=== PATIENT | female | born 1965 ===

== ENCOUNTER 2021-02-19 08:51 | Outpatient (REF) | payer MEDICAID, SELFPAY ==
--- NOTE | ~2021-02-19 | MM_ITS ---
EXAMINATION: MM DIAGNOSTIC DIGITAL BREAST TOMOSYNTHESIS, BILATERAL CLINICAL INFORMATION: Due for yearly. Also follow-up probable benign nodule/cyst 9:00 left breast. The lifetime risk of breast cancer based on the Tyrer-Cuzick Model is 6%. COMPARISON: Mammography: 09/02/2019, 02/22/2019, 02/11/2019 (BI-RADS 0) 11/04/2016, 05/08/2015 TECHNIQUE: Digital breast tomosynthesis is performed in both the craniocaudal and mediolateral oblique views along with computer-aided detection (CAD). Synthesized 2D images are generated from the tomosynthesis. FINDINGS: There are scattered areas of fibroglandular density (ACR BI-RADS breast composition Category b). Parenchymal pattern is similar to prior exams. There is stable nodule upper outer quadrant left breast similar to prior studies. The nodule central inner left breast is stable from prior diagnostic exams. It is now considered to be benign. Other background bilateral stromal and fibroglandular densities are similar to prior studies. There is no interval mass or architectural abnormality or developing density. No abnormal calcifications. The axilla and skin contours are unremarkable. Results are provided to the patient at time of visit by the technologist. MM/MM tomosynthesis diagnostic BI IMPRESSION: There are no significant changes from prior study. The nodule for follow up inner left breast is now considered to be benign. ASSESSMENT: BI-RADS 2: Benign RECOMMENDATION: Routine annual mammography screening. This patient's information was entered into a reminder system with a target due date for their next mammogram.
== END 2021-02-19 08:52 | disposition home or self-care (01) ==
LOC: HO.MAMMO 08:51
PROVIDERS: Visit Provider Internal Medicine
DX: N63.25 Unspecified lump in the left breast, overlapping quadrants (principal)
CPT/HCPCS: 77062; 77066

== ENCOUNTER 2021-02-28 15:55 | Outpatient (REF) | payer MEDICAID, SELFPAY ==
--- NOTE | ~2021-02-28 | US_ITS ---
EXAMINATION: US VENOUS ULTRASOUND WITH DOPPLER LOWER EXTREMITY, BILATERAL CLINICAL INFORMATION: Bilateral lower extremity pain and swelling. COMPARISON: None TECHNIQUE: Ultrasound of the deep veins is performed from the hip to the calf with compression sonography and color and pulse Doppler assessment. Spectral analysis with color-flow imaging is performed. FINDINGS: RIGHT: There is normal venous compression and respiratory variation and augmented flow. The visualized common femoral vein, superficial femoral vein, profunda femoral vein, popliteal vein, and the trifurcation region shows no evidence of deep venous thrombosis. There is no significant popliteal fossa cyst. LEFT: There is normal venous compression and respiratory variation and augmented flow. The visualized common femoral vein, superficial femoral vein, profunda femoral vein, popliteal vein, and the trifurcation region shows no evidence of deep venous thrombosis. There is no significant popliteal fossa cyst. If the patient's symptoms persist, followup ultrasound in 5 days 7 days might be of value to exclude proximal propagation from a non-visualized calf vein. US/US venous duplex LE BI IMPRESSION: No DVT demonstrated in the bilateral lower extremities.
== END 2021-02-28 15:56 | disposition home or self-care (01) ==
LOC: HO.US 15:55
PROVIDERS: Visit Provider Emergency Medicine
DX: R60.0 Localized edema (principal); M79.605 Pain in left leg; M79.604 Pain in right leg
CPT/HCPCS: 93970

== ENCOUNTER 2021-03-29 16:07 | Emergency (ER) | payer MEDICAID, SELFPAY ==
--- NOTE | ~2021-03-29 | XR_ITS ---
EXAMINATION: XR FOOT, LEFT CLINICAL INFORMATION: Wound left foot. COMPARISON: None TECHNIQUE: 2 views of the left foot. FINDINGS: No focal bone lesion or abnormal periosteal reaction. No radiographic evidence for osteomyelitis. Joint spaces are normal. Small plantar calcaneal spur. No soft tissue abnormality. XR/XR foot LT 2V IMPRESSION: No acute abnormality of the left foot.
[2021-03-29 16:37] VITALS: BP 201/114; PULSE 66; RESP 18; TEMP 37.1; O2SAT 100; BMI 37.8
--- NOTE | 2021-03-29 17:32 | ED_ITS ---
HPI - Extremity Injury (Lower) General Chief Complaint: Extremity Injury, Lower Stated Complaint: leg infection Time Seen by Provider: 03/29/21 17:32 Source: patient and air drier Mode of arrival: ambulatory Limitations: no limitations History of Present Illness HPI Narrative: 55-year-old female who developed a blister between 4th and 5th toes left foot, patient declined any trauma declined any new shoes, because patient is diabetic was seen by her PCP and was started on doxycycline. In the emergency department patient found to be hypertensive patient takes blood pressure medication normally but she did not take her wrist today (patient cannot recall the name of the medication) but patient thing that blood pressure is high because of the pain in the left foot. Patient declined any headache, no chest pain, no abdominal pain, no blurry vision. Related Data Previous Rx's Medication Instructions Recorded ibuprofen 600 mg tablet 600 mg PO Q8H PRN #14 tab 03/29/21 Allergies Allergy/AdvReac Type Severity Reaction Status Date / Time No Known Allergies Allergy Verified 03/29/21 16:37 Review of Systems Review of Systems: All other systems are reviewed and are negative Constitutional: Reports as per HPI and Reports no additional constitutional complaints Eyes: Reports as per HPI and Reports no additional eye complaints Reports system reviewed and no additional complaints, except as documented Cardiovascular: Reports as per HPI and Reports no additional cardiovascular complaints Respiratory: Reports as per HPI and Reports no additional respiratory complaints Gastrointestinal: Reports as per HPI and Reports no additional gastrointestinal complaints Genitourinary: Reports no additional female genitourinary complaints Musculoskeletal: Reports no additional musculoskeletal complaints Skin/Breast: Reports system reviewed and no additional complaints, except as docu Psychiatric: Reports no additional psychiatric complaints Endocrine: Reports no additional endocrine complaints Hematologic/Lymphatic: Reports no additional hematologic/lymphatic complaints Allergic/Immunologic: Reports no additional allergic/immunologic complaints Reports system reviewed and no additional complaints, except as documented and Reports Abnormal speech present [facility] Past Medical History Medical History Diabetes Social History Social History Advance Directives: No Physical Exam Vital Signs: Vital Signs: Last Vital Signs Temp 98 F 03/29/21 18:55 Pulse 66 03/29/21 18:55 Resp 20 03/29/21 18:55 BP 181/95 H 03/29/21 18:55 Pulse Ox 100 09/16/21 18:55 Body Mass Index 37.8 Vital signs have been reviewed as appeared to be correct. Blood pressure elevated. Heart rate normal. Respiration rate normal. Temperature normal. Oxygen saturation normal. Appearance: Alert. Oriented X3. No acute distress. Head: Normal external exam. Normocephalic. Atraumatic. No Costello signs noted. No raccoon eyes noted Eyes: PERRLA. EOMI. Conjunctiva and sclera normal. Eyelids normal. ENT: TM's Normal. Pharynx normal. Uvula midline. Moist mucous membranes. No trismus noted. No drooling noted. No muffled voice noted. Neck: Normal inspection. Neck supple. FROM. No adenopathy. Thyroid Normal. No meningeal signs. No neck mass noted. CVS: Normal heart rate and rhythm. Heart sound normal. No murmurs noted. Pulses normal throughout. Respiratory: No respiratory distress. Painless inspiration. Breath sounds normal. No wheezes/rales/rhonchi noted. Chest nontender. No accessory muscle usage noted or decreased air movement noted. Abdomen: Soft and nontender. Bowel sounds normal in all 4 quadrants. No distention noted. No organomegaly noted. No visible injury noted. Back: No CVA tenderness. Full range of motion noted. Skin: Skin warm and dry. Normal skin color. Normal skin turgor. No rashes/lesions/lacerations noted. Extremities: No lower extremity edema. Extremities exhibit normal range of motion. Extremities nontender. Neuro: Oriented X 3. Cranial nerve exam: II-XII are grossly intact No motor deficit. No sensory deficit. Reflexes normal. Course Course Course Narrative: 55-year-old female came in with blister on her left foot because patient is diabetic patient was started on doxycycline, patient found to be hypertensive patient with a history of hypertension and did not take her medication today, patient was given pain medication the emergency department blood pressure now is lower patient was instructed to take her blood pressure medication when she gets home. MDM - Extremity Injury (Lower) Imaging Data Left foot x-ray: Radiologist's impression: No acute abnormality of the left foot. Discharge Plan Discharge Clinical Impression: Hypertension, Blister (nonthermal), left foot, initial encounter Patient Disposition: Home, Self-Care Instructions: Hypertension (ED) Prescriptions: New ibuprofen 600 mg tablet 600 mg PO Q8H PRN (Reason: pain) Qty: 14 RF: 0 Referrals: [place] [Primary Care Provider] - 2 days
[2021-03-29] MEDS: oxyCODONE HCl Immed Release 5 MG TABLET PO (18:17)
[2021-03-29 18:55] VITALS: BP 181/95; PULSE 66; RESP 20; TEMP 36.6; O2SAT 100
== END 2021-03-29 19:37 | disposition home or self-care (01) ==
PROVIDERS: Emergency Provider Emergency Medicine
DX: M79.672 Pain in left foot (principal); I10 Essential (primary) hypertension; Z79.899 Other long term (current) drug therapy
CPT/HCPCS: 73620; 99283; 99284

== ENCOUNTER 2021-07-03 14:14 | Outpatient (REF) | payer MEDICAID, SELFPAY ==
--- NOTE | ~2021-07-03 | XR_ITS ---
EXAMINATION: XR CERVICAL SPINE XR THORACIC SPINE CLINICAL INFORMATION: Cervicalgia COMPARISON: None. TECHNIQUE: 5 views of the cervical spine and 3 views of the thoracic spine FINDINGS: No acute visible fracture or dislocation. Straightening of normal cervical curvature which may be secondary to patient positioning versus muscle spasm. Mild to moderate multilevel degenerative changes with disc space narrowing, endplate sclerosis, osteophyte formation, and facet arthropathy. Slight exaggeration of the thoracic kyphosis. Neuroforamen are patent bilaterally. Visualized dens is intact. Lateral masses are symmetric. Vertebral body heights and disc spaces are maintained. Prevertebral soft tissues are unremarkable. Posterior elements are intact. Paraspinal soft tissues are unremarkable. Visualized portions of the chest are unremarkable. XR/XR thoracic spine 2V IMPRESSION: 1. No acute visible fracture or dislocation. 2. Straightening of normal cervical curvature which may be secondary to patient positioning versus muscle spasm. 3. Slight exaggeration of the thoracic kyphosis. 4. Mild to moderate multilevel degenerative changes .
--- NOTE | ~2021-07-03 | XR_ITS ---
EXAMINATION: XR CERVICAL SPINE XR THORACIC SPINE CLINICAL INFORMATION: Cervicalgia COMPARISON: None. TECHNIQUE: 5 views of the cervical spine and 3 views of the thoracic spine FINDINGS: No acute visible fracture or dislocation. Straightening of normal cervical curvature which may be secondary to patient positioning versus muscle spasm. Mild to moderate multilevel degenerative changes with disc space narrowing, endplate sclerosis, osteophyte formation, and facet arthropathy. Slight exaggeration of the thoracic kyphosis. Neuroforamen are patent bilaterally. Visualized dens is intact. Lateral masses are symmetric. Vertebral body heights and disc spaces are maintained. Prevertebral soft tissues are unremarkable. Posterior elements are intact. Paraspinal soft tissues are unremarkable. Visualized portions of the chest are unremarkable. XR/XR cervical spine 4V IMPRESSION: 1. No acute visible fracture or dislocation. 2. Straightening of normal cervical curvature which may be secondary to patient positioning versus muscle spasm. 3. Slight exaggeration of the thoracic kyphosis. 4. Mild to moderate multilevel degenerative changes .
== END 2021-07-03 14:15 | disposition home or self-care (01) ==
LOC: HO.XRAY 14:14
PROVIDERS: Absent Provider Internal Medicine; PCP Internal Medicine; Visit Provider General Practice
DX: M54.2 Cervicalgia (principal)
CPT/HCPCS: 72050; 72070

== ENCOUNTER 2022-03-31 08:57 | Emergency (ER) | payer MEDICAID, SELFPAY ==
[2022-03-31 09:57] VITALS: BP 155/72; PULSE 64; RESP 18; TEMP 37.3; O2SAT 98; BMI 27.3
--- NOTE | 2022-03-31 14:02 | ED.GENADULT ---
HPI - General Adult General Chief complaint: Skin/Abscess/Foreign Body Stated complaint: allergic reaction Source: patient Mode of arrival: ambulatory Limitations: no limitations History of Present Illness HPI narrative: 56-year-old female presents to ED for facial itching and redness see since Friday. Patient states itchy rash on face with hives. Patient states this morning she woke up with eyes swollen with the same facial rash. Patient denies ever having lip swelling, tongue swelling, sensation of throat closing, shortness of breath. Patient states also had itchy rash on extremities that resolved. Patient denies any chest pain or shortness of breath. Patient states no fever, chills, runny eyes. Patient eyes swelling resolved. Related Data Previous Rx's Medication Instructions Recorded ibuprofen 600 mg tablet 600 mg PO Q8H PRN pain #14 tabs 03/29/21 diphenhydramine HCl 25 mg capsule 25 mg PO TID PRN allergic reaction 03/31/22 (Benadryl) 7 days #21 caps famotidine 20 mg tablet (Pepcid) 20 mg PO BID 7 days #14 tabs 03/31/22 prednisone 20 mg tablet 40 mg PO DAILY 5 days #10 tabs 03/31/22 Allergies Allergy/AdvReac Type Severity Reaction Status Date / Time No Known Allergies Allergy Verified 03/31/22 09:57 Review of Systems Review of Systems: facial itchy rash Yes all other systems are reviewed and are negative PMFSH Past Medical History Medical History Diabetes Social History Social History Advance Directives: No Advance Directives Information Provided: No Physical Exam ED Vital Signs: Vital Signs - 24 hr 03/31/22 09:57 Temperature 99.2 F Pulse Rate 64 Respiratory Rate 18 Blood Pressure 155/72 H Pulse Oximetry 98 Oxygen Delivery Method Room Air BMI result Body Mass Index 27.3 Const General: cooperative, healthy appearing, comfortable, no acute distress, well developed, alert, awake and Physically active Orientation/consciousness: oriented to person, oriented to place, oriented to time and patient oriented x3 HENMT Head: Yes normal to inspection, Yes No palpable skull fracture present, Yes normocephalic, Yes atraumatic and No abrasion Head images: 1. Positive for erythematous itchy rash Uticaria. Negative for vesicles. negative for lip swelling, tongue swelling, drooling, hoarseness, or uvular swelling. 2. Positive for erythematous itchy rash Uticaria. Negative for vesicles. negative for lip swelling, tongue swelling, drooling, hoarseness, or uvular swelling. Eyes General: appearance normal, both eyes and all related structures Neck Neck: Yes normal visual inspection, Yes full ROM and Yes no meningeal signs Chest Chest palpation & inspection: normal inspection of the chest and normal palpation of entire chest wall Resp Effort & Inspection: normal respiratory effort and able to speak in complete sentences Auscultation: clear to auscultation bilaterally Cardio Jugular venous distension: no JVD Heart sounds: S1 normal heart sound present and S2 normal heart sound present GI Inspection: Yes normal to inspection and No abdominal wall ecchymosis Palpation (GI): Soft to palpation, not firm, nontender, no guarding and not rigid General: No CVA tenderness and Yes no CVA tenderness Back/Spine/Pelvis Back: no CVA tenderness, No CVA tenderness and No back tenderness Skin General skin exam: no rashes or lesions noted and elasticity normal Neuro General: oriented to person, oriented to place, oriented to time, patient oriented x3, gait normal, tone normal, moves all extremities, Normal light touch and pain sensation, no meningeal signs, no focal motor deficits and CN's II-XI intact bilaterally Extrem General: Yes normal to inspection and Yes full ROM Psych Appearance: grossly normal, well kempt and not disheveled Course Course Course Narrative: patient is stable. Reevaluation(s) Reevaluation #1: Patient is not in any respiratory distress. History physical exam indicate allergic reaction. Not suspecting facial cellulitis or erysipelas. Patient will be discharged with prednisone Benadryl and Pepcid. Patient informed to return to ED if symptoms worsen.s Time: 14:12 Medical Decision Making [facility] Narrative Medical decision making narrative: Allergic reaction Discharge Plan Discharge Clinical Impression: Allergic reaction Patient Disposition: Home, Self-Care Instructions: General Allergic Reaction (ED) Additional Instructions: La historia y el examen f?sico indican chemo reacci?n al?rgica. Ser? dado de dasia con Benadryl, esteroides y Pepcid. Regrese al servicio de urgencias inmediatamente si tiene fiebre, escalofr?os, hinchaz?n de los labios, hinchaz?n de la lengua, dificultad para respirar, dolor en el pecho, sarpullido que empeora, fiebre, escalofr?os, ojos llorosos o cualquier otro s?ntoma preocupante. Por favor, rody un seguimiento con el proveedor de atenci?n primaria. Prescriptions: New diphenhydramine HCl [Benadryl] 25 mg capsule 25 mg PO TID PRN (Reason: allergic reaction) 7 Days Qty: 21 0RF prednisone 20 mg tablet 40 mg PO DAILY 5 Days Qty: 10 0RF famotidine [Pepcid] 20 mg tablet 20 mg PO BID 7 Days Qty: 14 0RF No Action ibuprofen 600 mg tablet 600 mg PO Q8H PRN (Reason: pain) Qty: 14 0RF Referrals: Tiffanie Cavazos MD [Primary Care Provider] - (Allergic reaction) Stand Alone Forms: Work/School Release Interventions: ED Discharge Assessment Last Done: 03/31/22 14:33 Discharge Date/Time: 03/31/22 14:33 Print Language: Macedonian
== END 2022-03-31 14:33 | disposition home or self-care (01) ==
PROVIDERS: Emergency Provider Emergency Medicine; PCP Internal Medicine
DX: L23.9 Allergic contact dermatitis, unspecified cause (principal); Z79.899 Other long term (current) drug therapy
CPT/HCPCS: 99282

== ENCOUNTER 2023-02-12 09:24 | Outpatient (REF) | payer MEDICAID, SELFPAY ==
--- NOTE | ~2023-02-12 | XR_ITS ---
EXAMINATION: XR ANKLE, RIGHT CLINICAL INFORMATION: Pain status-post injury. COMPARISON: None available. TECHNIQUE: AP, lateral, and mortise views of the right ankle. FINDINGS: Bony alignment and mineralization are normal. The ankle mortise is intact. No fracture, dislocation or right joint effusion is seen. Boehler's angle is normal. There is a moderate plantar calcaneal spur. There is moderate soft tissue swelling adjacent to the lateral malleolus. XR/XR ankle RT min 3V IMPRESSION: 1. No right ankle fracture, dislocation or joint effusion is seen. 2. There is moderate soft tissue swelling adjacent to the lateral malleolus. 3. There is a moderate right calcaneal plantar spur.
== END 2023-02-12 09:25 | disposition home or self-care (01) ==
LOC: HO.HHCX 09:24
PROVIDERS: Visit Provider Registered Nurse
DX: M25.571 Pain in right ankle and joints of right foot (principal)
CPT/HCPCS: 73610

== ENCOUNTER 2023-02-12 09:45 | Outpatient (REF) | payer MEDICAID, SELFPAY ==
[2023-02-12 12:27] LABS: Cholesterol 166 mg/dL; HDL Cholesterol 50 mg/dL; LDL Cholesterol Calculated 101 mg/dl; Triglycerides 79 mg/dL
== END 2023-02-12 09:46 | disposition home or self-care (01) ==
LOC: HO.HHCL 09:45
PROVIDERS: Visit Provider Registered Nurse
DX: E11.65 Type 2 diabetes mellitus with hyperglycemia (principal); Z79.4 Long term (current) use of insulin
CPT/HCPCS: 36415; 80061

== ENCOUNTER 2023-03-21 14:15 | Outpatient (REF) | payer MEDICAID, SELFPAY ==
[2023-03-21 15:09] LABS: MANUAL DIFF FLAG NO
[2023-03-21 16:05] LABS: Basophils Percent Auto 0.4 % (0-2); Eosinophils Absolute Auto 0.1 X10*3/uL (0.0-0.4); Eosinophils Percent Auto 1.2 % (0-4); Hematocrit 37.2 % (37.0-47.0); Hemoglobin 12.5 g/dl (12.0-16.0); Imm Gran Abs Auto 0.02 X10*3/uL (0.00-0.03); Imm Gran Pct Auto 0.2 % (0.0-0.4); Lymphocytes Absolute Auto 3.1 X10*3/uL (1.2-4.9); Mean Corpuscular HGB Conc 33.6 g/dl (31.0-35.0); Mean Corpuscular Hemoglobin 30.2 pg (27.0-33.0); Mean Corpuscular Volume 89.9 fL (80.0-98.0); Mean Platelet Volume 11.4 fL (9.4-12.3); Monocytes Absolute Auto 0.6 X10*3/uL (0.1-1.2); Monocytes Percent Auto 5.6 % (2-11); Neutrophils Absolute Auto 6.1 x10*3/uL (2.0-8.3); Neutrophils Percent Auto 61.6 % (45-73); Platelet Count 264 X10*3/uL (160-400); Red Blood Count 4.14 X10*6/uL (4.20-5.50); Red Cell Distribution Width 13.3 % (11.0-16.0); White Blood Count 9.9 X10*3/uL (4.8-10.8)
== END 2023-03-21 14:16 | disposition home or self-care (01) ==
LOC: HO.LAB 14:15
PROVIDERS: PCP Internal Medicine; Visit Provider Internal Medicine Pulmonary Disease
DX: J45.909 Unspecified asthma, uncomplicated (principal); R06.09 Other forms of dyspnea; G47.33 Obstructive sleep apnea (adult) (pediatric); Z79.899 Other long term (current) drug therapy; Z91.09 Other allergy status, other than to drugs and biological substances
CPT/HCPCS: 36415; 82785; 85025; 86003; 99202

== ENCOUNTER 2023-03-21 14:15 | Outpatient (AMB) | payer MEDICAID, SELFPAY ==
--- NOTE | 2023-03-21 14:16 | A.OFFVIS_ITS ---
Intake Vital Signs 03/21/23 14:17 Height 5 ft 1 in Weight 199 lb 8.293 oz BMI 37.7 BP 132/77 Blood Pressure Location Lt brachial Position Sitting Pulse 76 Pulse Source Doppler Pulse Oximetry (%) 98 Oxygen Delivery Method Room Air Intake Visit Reasons: Asthma Allergies No Known Allergies Allergy (Verified 03/21/23 14:19) HPI Asthma HPI Details 57-year-old lady, nonsmoker, with underl cady history of asthma referred for management of her pulmonary concern complaints. Patient states that she has been using Breo, albuterol MDI, and Singulair with suboptimal control of her symptoms. She complains of multiple environmental allergies. Patient is also concerned about lower extremity edema, orthopnea, and paroxysmal nocturnal dyspnea. She denies family history of lung disease. Patient does not have any pets. She denies exposure to industrial dusts. Patient also complains of unrestful sleep, snoring, and daytime somnolence. [facility] Medical History Diabetes Review of Systems Const Reports daytime sleepiness, Denies excessive sweating, Reports fatigue, Denies fever(s), Reports lethargy, Denies malaise, Denies night sweats, Reports snoring and Denies weight loss Eyes Denies blurry vision and Denies itchy eyes ENT Denies nasal congestion, Denies post nasal drip, Denies sinus pain, Denies sinus pressure and Denies other ( Thrush) Card Denies chest pain, Reports pedal edema, Denies dyspnea, Reports dyspnea on exertion, Reports orthopnea and Denies paroxysmal nocturnal dyspnea Resp Denies cough, Denies hemoptysis, Denies excessive phlegm production, Denies dyspnea, Reports dyspnea on exertion, Reports snoring and Reports wheezing GI Denies abdominal pain and Denies heartburn Musc Denies myalgias, Denies arthralgias and Denies joint swelling Skin/Breast Denies rash Neuro Denies memory loss and Denies seizure-like activity Psych Denies abnormal sleep pattern, Denies anxiety and Denies memory loss Endo Denies excessive sweating, Reports fatigue and Denies heat intolerance John/Lymph Denies easy bruising Aller/Immun Denies itchy eyes, Denies seasonal rhinorrhea and Reports wheezing Physical Exam Vital Signs: Last Vital Signs Pulse 76 03/21/23 14:17 BP 132/77 03/21/23 14:17 Pulse Ox 98 03/21/23 14:17 Oxygen Delivery Method Room Air 03/21/23 14:17 BMI result Body Mass Index 37.7 Const General: no acute distress and alert Nutritional Appearance: obese Orientation/consciousness: Other orientation findings ( oriented) HEENT Head: Yes atraumatic Eyes General: appearance normal, both eyes and all related structures Sclerae: sclerae normal EOM: EOMs intact bilaterally Neck Neck: Yes supple Lymphatic: no lymphadenopathy noted Resp Effort & Inspection: normal respiratory effort and no use of accessory muscles Auscultation: clear to auscultation bilaterally Cardio Rate: regular rate Rhythm: regular rhythm Heart sounds: no gallops, no murmurs and no rubs Skin General skin exam: other ( warm) Extrem General: No clubbing, No cyanosis and Yes edema (1+ bilateral) Assessment & Plan Assessment & Plan (1) Asthma: Code(s): J45.909 - Unspecified asthma, uncomplicated Plan: Underlying asthma of unclear severity suboptimally controlled on Breo, albuterol MDI, and Singulair. Will obtain full PFT. Continue current regimen until PFT results are available. (2) MIRANDA (dyspnea on exertion): Code(s): R06.09 - Other forms of dyspnea Plan: Appears to be multifactorial with likely contribution from underlying pulmonary, cardiac, and obesity/deconditioning etiologies. Will obtain 2D echocardiogram to evaluate cardiac contribution. (3) JOEL (obstructive sleep apnea): Code(s): G47.33 - Obstructive sleep apnea (adult) (pediatric) Plan: Unrestful sleep, daytime somnolence, snoring. [place] Sleepiness Scale score of 16. Will obtain home sleep study. (4) Environmental allergies: Code(s): Z91.09 - Other allergy status, other than to drugs and biological substances Plan: Will obtain IgE level, CBC with differential, and RAST panel for further evaluation. Orders: Orders PFT pulmonary function test Today J45.909 - Unspecified asthma, uncomplicated Complete Blood Count Auto Diff Today Z91.09 - Other allergy status, other than to drugs and biological substances RT home sleep study Today G47.33 - Obstructive sleep apnea (adult) (pediatric) Rast Allergen Today Z91.09 - Other allergy status, other than to drugs and biological substances CA echo transthoracic complete Today R06.09 - Other forms of dyspnea Coding Level of Care Code New Pt Level 4 (62180) Diagnoses Asthma J45.909 MIRANDA (dyspnea on exertion) R06.09 JOEL (obstructive sleep apnea) G47.33 Environmental allergies Z91.09
[2023-03-21 14:17] VITALS: BP 132/77; PULSE 76; O2SAT 98; BMI 37.7
== END 2023-03-21 14:58 | disposition home or self-care (01) ==
PROVIDERS: PCP Internal Medicine; Visit Provider Internal Medicine Pulmonary Disease
DX: J45.909 Unspecified asthma, uncomplicated (principal); R06.09 Other forms of dyspnea; G47.33 Obstructive sleep apnea (adult) (pediatric); Z91.09 Other allergy status, other than to drugs and biological substances
CPT/HCPCS: 99204

== ENCOUNTER 2023-07-09 09:33 | Outpatient (AMB) | payer MEDICAID, SELFPAY ==
[2023-07-09 10:33] VITALS: BMI 37.4
--- NOTE | 2023-07-09 10:33 | A.OFFVIS_ITS ---
Intake Vital Signs 07/09/23 10:33 Height 5 ft 1 in Weight 198 lb BMI 37.4 Intake Visit Reasons: nodule clavicle cyst vs. lipoma Intake Note: This patient presents for an assessment for clavicular nodule vs cyst vs lipoma. Pt c/o; reports no complaints at this time. 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 Name: Naun Information Interpreted: non-clinical & clinical Accompanied by: Other Relationship Allergies No Known Allergies Allergy (Verified 07/09/23 10:34) Medication List - Last Reconciled 07/09/23 by Wallace Salmeron MD albuterol sulfate 90 mcg/actuation (ProAir HFA) 2 puffs inhalation Q4-6H PRN amlodipine 10 mg PO QAM atenolol 25 mg PO QAM chlorthalidone 12.5 mg PO QAM diphenhydramine HCl (Benadryl) 25 mg PO TID PRN 7 days dulaglutide (Trulicity) mg subcut QWEEK duloxetine 30 mg PO QAM empagliflozin (Jardiance) 25 mg PO QAM famotidine (Pepcid) 20 mg PO BID 7 days gabapentin 100 mg PO BEDTIME ibuprofen 600 mg PO Q8H PRN metformin ER 500 mg PO QAM montelukast 10 mg PO QPM omeprazole 20 mg PO prednisone 40 mg (2 x 20 mg) PO DAILY 5 days rosuvastatin 10 mg PO QAM HPI nodule clavicle cyst vs. lipoma HPI Details 57-year-old female referred for a on the right clavicular area. She says that she has had this for over 30 years. However, this had been causing some pain and discomfort. She therefore wants this removed. She denies any discharge or any redness. She has noticed some increased in size over the years. PENDING SALE TO [facility] Medical History (Updated 07/09/23 @ 10:48 by Wallace Salmeron MD) Mass in neck Morbid obesity Diabetes Social History Alcohol intake: never Patient Tobacco Use Status: Never used Tobacco Review of Systems Const Denies chills and Denies fever(s) Card Denies chest pain, Reports dyspnea and Reports dyspnea on exertion Resp Denies cough, Reports dyspnea and Reports dyspnea on exertion GI Denies hematochezia and Denies change in bowel habits Denies hematuria Musc Reports abnormal gait, Reports back pain, Reports arthralgias and Reports limited range of motion Neuro Reports abnormal gait, Denies focal weakness and Denies convulsions Psych Denies depression and Denies mood swings Physical Exam Vital Signs: BMI result Body Mass Index 37.4 Const Other: Morbidly obese, using a cane to ambulate General: comfortable and no acute distress Orientation/consciousness: patient oriented x3 Neck Other: On the right collarbone area is note of a soft, well-defined, mobile mass, about 2 cm, consistent with a fibroma Neck: Yes no lymphadenopathy Resp Auscultation: clear to auscultation bilaterally Cardio Rhythm: regular rhythm GI Palpation (GI): Soft to palpation, nontender and no guarding Neuro General: patient oriented x3 Assessment & Plan Assessment & Plan (1) Mass in neck: Code(s): R22.1 - Localized swelling, mass and lump, neck Plan: This appears to be a fibroma. She wants this excised. I explained the technique of excision under local anesthesia. I reviewed the risks including but not limited to bleeding, infections and poor healing, as well as the benefits and alternatives. She wants to proceed. This will be done here in the office on her next visit. Coding Level of Care Code New Pt Level 3 (81320) Diagnoses Mass in neck R22.1
== END 2023-07-09 10:51 | disposition home or self-care (01) ==
PROVIDERS: PCP Registered Nurse; Visit Provider Surgery
DX: R22.1 Localized swelling, mass and lump, neck (principal)
CPT/HCPCS: 99203

== ENCOUNTER → 2023-07-09 09:33 | Outpatient (BNVA) | payer MEDICAID, SELFPAY | PROVIDERS: PCP Registered Nurse; Visit Provider Surgery | DX: R22.1 Localized swelling, mass and lump, neck (principal) | CPT/HCPCS: 99202 ==

== ENCOUNTER 2023-11-01 20:44 | Emergency (ER) | payer MEDICAID, SELFPAY ==
--- NOTE | 2023-11-01 | ECG_ITS ---
Test Reason : GEN MED Blood Pressure : / mmHG Vent. Rate : 064 BPM Atrial Rate : 064 BPM P-R Int : 184 ms QRS Dur : 078 ms QT Int : 390 ms P-R-T Axes : 058 015 042 degrees QTc Int : 402 ms Normal sinus rhythm Normal ECG When compared with ECG of 27-JUN-2017 09:02, No significant change was found Referred By: Generic ED Physician Electronically Signed By:HAYLEE CHAND
[2023-11-01 20:46] VITALS: BP 190/77; PULSE 66; RESP 20; TEMP 36.4; O2SAT 100; BMI 42.9
[2023-11-01 21:22] LABS: MANUAL DIFF FLAG NO
[2023-11-01 21:25] LABS: Basophils Percent Auto 0.3 % (0-2); Eosinophils Absolute Auto 0.1 X10*3/uL (0.0-0.4); Eosinophils Percent Auto 1.3 % (0-4); Hematocrit 39.2 % (37.0-47.0); Hemoglobin 13.1 g/dl (12.0-16.0); Imm Gran Abs Auto 0.02 X10*3/uL (0.00-0.03); Imm Gran Pct Auto 0.2 % (0.0-0.4); Lymphocytes Absolute Auto 2.8 X10*3/uL (1.2-4.9); Lymphocytes Percent Auto 30.2 % (20-40); Mean Corpuscular HGB Conc 33.4 g/dl (31.0-35.0); Mean Corpuscular Hemoglobin 30.2 pg (27.0-33.0); Mean Corpuscular Volume 90.3 fL (80.0-98.0); Mean Platelet Volume 11.4 fL (9.4-12.3); Monocytes Absolute Auto 0.6 X10*3/uL (0.1-1.2); Neutrophils Absolute Auto 5.7 x10*3/uL (2.0-8.3); Platelet Count 266 X10*3/uL (160-400); Red Blood Count 4.34 X10*6/uL (4.20-5.50); White Blood Count 9.3 X10*3/uL (4.8-10.8)
[2023-11-01 21:43] LABS: Alanine Aminotransferase 22 U/L (0-31); Albumin Level 4.1 g/dL (3.5-5.0); Alkaline Phosphatase 121 U/L (39-117); Anion Gap 10 (12-20); Aspartate Amino Transferase 19 U/L (5-31); Bilirubin Total 0.2 mg/dL (0.0-1.0); Blood Urea Nitrogen 17 mg/dL (9-16); Carbon Dioxide 26 mmol/L (22-29); Chloride 107 mmol/L (96-108); Creatinine Clr Calc Pharmacy 93.4; Estimated Glomerular Filt Rate > 60; Glucose Random 155 mg/dL (60-115); Sodium 139 mmol/L (135-145); Total Protein 7.5 g/dL (6.5-8.0)
[2023-11-01 21:48] LABS: Troponin-I High Sensitivity < 2.7 ng/L (<3.5-17.0)
[2023-11-01 21:54] VITALS: BP 189/84; PULSE 62; RESP 18; O2SAT 99
[2023-11-01 22:05] LABS: Influenza A PCR NEGATIVE (Negative); Influenza B PCR NEGATIVE (Negative); Resp Syncy Virus RNA Qual PCR NEGATIVE (Negative); SARS COV2 PCR INHOUSE NEGATIVE (Negative)
[2023-11-01 22:58] LABS: Glucose, Whole Blood 118 mg/dL (60-115)
--- NOTE | 2023-11-01 23:46 | ED_ITS ---
HPI - General Adult General Chief complaint: General Medical Stated complaint: High Blood Pressure Time Seen by Provider: 11/01/23 23:46 Source: patient Mode of arrival: ambulatory Limitations: no limitations History of Present Illness HPI narrative: 58-year-old female with a history of diabetes mellitus, hypertension, asthma, depression who presents emergency department for evaluation of headaches, high blood pressure and high sugars. The patient states that she often gets headaches. When she gets a headache she checks her blood pressure and her blood pressures all of these high. Patient also states she gets frequent headaches. She states over the last 3 days she has had a left-sided headache, she has difficulty describing then sensation but she states the pain is very strong. She gets occasional blurred vision with the headache but no nausea, vomiting, photophobia, phonophobia or weakness. She states that she was having a headache and took her blood pressure, the blood pressure was high so she came to the emergency department for evaluation. She did not take any medications for headache but she states she has taken Tylenol in the past and this does improve her headaches. She also states that she is having difficulty controlling her sugars and her sugars are often high. Related Data Home Medications ?Medication ?Instructions ?Recorded ?Confirmed albuterol sulfate 90 mcg/actuation 2 puff inhalation Q4-6H PRN 03/21/23 07/09/23 aerosol inhaler (ProAir HFA) amlodipine 10 mg tablet 10 mg PO QAM 03/21/23 07/09/23 atenolol 25 mg tablet 25 mg PO QAM 03/21/23 07/09/23 dulaglutide 4.5 mg/0.5 mL mg subcut QWEEK 03/21/23 07/09/23 subcutaneous pen injector (Trulicity) duloxetine 30 mg capsule,delayed 30 mg PO QAM 03/21/23 07/09/23 release empagliflozin 25 mg tablet 25 mg PO QAM 03/21/23 07/09/23 (Jardiance) gabapentin 100 mg capsule 100 mg PO BEDTIME 03/21/23 07/09/23 metformin 500 mg tablet,extended 500 mg PO QAM 03/21/23 07/09/23 release 24 hr montelukast 10 mg tablet 10 mg PO QPM 03/21/23 07/09/23 omeprazole 20 mg capsule,delayed 20 mg PO 03/21/23 07/09/23 release chlorthalidone 25 mg tablet 12.5 mg PO QAM 07/09/23 07/09/23 rosuvastatin 10 mg tablet 10 mg PO QAM 07/09/23 07/09/23 Previous Rx's ?Medication ?Instructions ?Recorded ibuprofen 600 mg tablet 600 mg PO Q8H PRN pain #14 tabs 03/29/21 diphenhydramine HCl 25 mg capsule 25 mg PO TID PRN allergic reaction 03/31/22 (Benadryl) 7 days #21 caps famotidine 20 mg tablet (Pepcid) 20 mg PO BID 7 days #14 tabs 03/31/22 prednisone 20 mg tablet 40 mg (2 x 20 mg) PO DAILY 5 days 03/31/22 #10 tabs Allergies Allergy/AdvReac Type Severity Reaction Status Date / Time No Known Allergies Allergy Verified 11/01/23 20:49 Review of Systems 2 Review of Systems: Yes all other systems are reviewed and are negative FOR[facility]LY [facility] Past Medical History FOR[facility] Narrative: Social history: She is and her is here in the emergency department with her. She denies tobacco use, alcohol use and drug use. Medical History Mass in neck Morbid obesity Diabetes Social History Social History Alcohol intake: never Patient Tobacco Use Status: Never used Tobacco Smoked in Last 30 Days: No Use of substances other than those prescribed or required for medical reasons: No Advance Directives: No Advance Directives Information Provided: No Patient : No Physical Exam ED Vital Signs: Vital Signs - 24 hr 11/01/23 20:46 11/01/23 21:54 Temperature 97.5 F Pulse Rate 66 62 Respiratory Rate 20 18 Blood Pressure 190/77 H 189/84 H Pulse Oximetry 100 99 Oxygen Delivery Method Room Air Room Air BMI result Body Mass Index 42.9 Vital signs revealed an elevated blood pressure of 190/77 otherwise unremarkable Exam: General: Awake, alert in no distress, elevated weight 113 kg, elevated BMI 42.9 kg /m2 Head: Normocephalic, atraumatic, no tenderness palpation over the temporal regions of her scalp EENT: PERRL, Lids normal, sclera normal, conjunctiva normal, nose normal , ears normal, throat without erythema or exudates Neck: Supple, no adenopathy Lung: breath sounds symmetric, no wheezing, rales or rhonchi Chest: symmetric movement, nontender Heart: regular rate and rhythm, normal S1, S2 no murmurs or rubs Abdomen: soft, non-tender, nondistended, normal bowel sounds Back: no vertebral tenderness, no CVAT Extremities: no deformities, moves all extremities symmetrically Neuro: Awake, alert, oriented, normal speech, cranial nerves intact, moves all extremities symmetrically Psych: Pleasant, cooperative Medical Decision Making Medical Decision Making MDM Narrative: 58-year-old female with a history of diabetes mellitus, hypertension, asthma, depression who presents emergency department for evaluation of headaches, high blood pressure and high sugars. Patient complains of a headache x3 days, today her headache got worse and she took her blood pressure was elevated therefore she came to emergency department for evaluation. She states that her blood sugars have been high despite her taking medications. Vital signs did reveal an elevated blood pressure otherwise were unremarkable. Physical examination was unremarkable. Differential diagnosis: ?Includes but is not limited to hypertension, renal failure, liver failure, electrolyte abnormalities, anemia Following evaluation was ordered: CBC, CMP, troponin, COVID-19, influenza, RSV, EKG Patient was initially treated with the following: Tylenol 975 mg orally Course: 00:19 My interpretation patient's laboratory evaluation is as follows: CBC was normal. CMP was normal. Glucose elevated 155. Troponin below detectable limits, COVID-19, influenza, RSV were normal. At this time, I believe the patient has essential hypertension and she is checking her blood pressure only when she has pain. I did discuss the management of hypertension with the patient and she was given instructions on checking her blood pressure in the mornings 3 times a week when she is feeling well for 2 weeks and to discuss these readings with her PCP. The patient's headaches do not have any concerning features and she was advised to take Tylenol or Excedrin migraine for these headaches. She was given printed and verbal instructions and discharged home. Admission/Observation Consideration of admission/observation: Escalation of care including admission/observation considered Lab Data [facility] Lab Attestation statement: I reviewed the patient's lab results. 11/01/23 21:13 11/01/23 21:13 Labs: Lab Results 11/01/23 11/01/23 Range/Units 21:13 22:55 WBC 9.3 (4.8-10.8) X10*3/uL RBC 4.34 (4.20-5.50) X10*6/uL Hgb 13.1 (12.0-16.0) g/dl Hct 39.2 (37.0-47.0) % MCV 90.3 (80.0-98.0) fL MCH 30.2 (27.0-33.0) pg MCHC 33.4 (31.0-35.0) g/dl RDW 13.0 (11.0-16.0) % Plt Count 266 (160-400) X10*3/uL MPV 11.4 (9.4-12.3) fL Immature Gran % (Auto) 0.2 (0.0-0.4) % Neut % (Auto) 62.0 (45-73) % Lymph % (Auto) 30.2 (20-40) % [place] % (Auto) 6.0 (2-11) % Eos % (Auto) 1.3 (0-4) % Baso % (Auto) 0.3 (0-2) % Lymph # (Auto) 2.8 (1.2-4.9) X10*3/uL [place] # (Auto) 0.6 (0.1-1.2) X10*3/uL Eos # (Auto) 0.1 (0.0-0.4) X10*3/uL Baso # (Auto) 0.0 (0.0-0.2) X10*3/uL Abs Immat Gran (auto) 0.02 (0.00-0.03) X10*3/uL Absolute Neuts (auto) 5.7 (2.0-8.3) x10*3/uL Absolute Nucleated RBC 0.000 (0.0-0.012) X10*3/uL Nucleated RBC % (auto) 0.0 (0.0-0.2) /100WBC Sodium 139 (135-145) mmol/L Potassium 4.0 (3.3-5.1) mmol/L Chloride 107 (96-108) mmol/L Carbon Dioxide 26 (22-29) mmol/L Anion Gap 10 L (12-20) BUN 17 H (9-16) mg/dL Creatinine 0.81 (0.5-1.4) mg/dL Estim Creat Clear Calc 93.4 Estimated GFR > 60 POC Glucose 118 H (60-115) mg/dL Random Glucose 155 H (60-115) mg/dL Calcium 10.0 (8.4-10.2) mg/dL Total Bilirubin 0.2 (0.0-1.0) mg/dL AST 19 (5-31) U/L ALT 22 (0-31) U/L Alkaline Phosphatase 121 H (39-117) U/L Troponin I High Sens < 2.7 (<3.5-17.0) ng/L Total Protein 7.5 (6.5-8.0) g/dL Albumin 4.1 (3.5-5.0) g/dL Influenza Type A (PCR) NEGATIVE (Negative) Influenza Type B (PCR) NEGATIVE (Negative) RSV RNA Qual (PCR) NEGATIVE (Negative) SARS-CoV-2 RNA (RT-PCR) NEGATIVE (Negative) Independent Interpretation I performed an independent interpretation of an: EKG Interpretation: My independent interpretation patient's 12 EKG done at 21:01 hours is as follows: Normal sinus rhythm rate of 64, normal WI interval, QRS duration QTC interval, no ST segment elevation, no ST segment depression, inverted T-wave in V1, no PACs, no PVCs, this is a normal EKG. Independent Historian Clinical information obtained from an independent historian. History obtained from or confirmed by: Spouse Chronic Conditions Patient?s care impacted by: Diabetes and Hypertension Discharge Plan Discharge Clinical Impression: Hypertension Qualifiers: Hypertension type: primary hypertension Qualified Code(s): I10 - Essential (primary) hypertension Headache Qualifiers: Headache chronicity pattern: acute headache Patient Disposition: Home, Self-Care Additional Instructions: For your headaches take extra-strength Tylenol 500 mg, 2 pills every 6 hours as needed or if this medication does not help then you can try Excedrin migraine 2 pills every 6 hours as needed for headaches. Excedrin migraine has Tylenol, aspirin and caffeine in it so do not take Tylenol while you take Excedrin migraine. High blood pressure instructions: If you take your blood pressure when you are feeling sick or have pain then the blood pressure will be high and does not reflect how your blood pressure medication is working to control your blood pressure. The reason to check your blood pressure at home is to give your doctor an idea of what your blood pressure does when you are not in the doctor's office. Take your blood pressure in the mornings, Mondays , Wednesdays and Fridays and then write down these readings to discuss them with your doctor at your next visit. Do this for 2 weeks. If your doctor thinks that your blood pressures are too high then they will either increase your high blood pressure medication or start you on a 2nd high blood pressure medication. If your doctor changes your blood pressure medications it will take anywhere from 2-6 week before these medications work to reduce your blood pressure. Exercising, losing weight and cutting sugar and salt on of your diet may also help reduce your blood pressure. Follow-up with your doctor to discuss your blood pressure readings in in 2 days as scheduled. Please return to the emergency department if your symptoms get worse or if you develop any new symptoms that are concerning to you. Prescriptions: No Action ibuprofen 600 mg tablet 600 mg PO Q8H PRN (Reason: pain) Qty: 14 0RF diphenhydramine HCl [Benadryl] 25 mg capsule 25 mg PO TID PRN (Reason: allergic reaction) 7 Days Qty: 21 0RF prednisone 20 mg tablet 40 mg PO DAILY 5 Days Qty: 10 0RF famotidine [Pepcid] 20 mg tablet 20 mg PO BID 7 Days Qty: 14 0RF albuterol sulfate [ProAir HFA] 90 mcg/actuation HFA aerosol inhaler 2 puff inhalation Q4-6H PRN duloxetine 30 mg capsule,delayed release(DR/EC) 30 mg PO QAM gabapentin 100 mg capsule 100 mg PO BEDTIME amlodipine 10 mg tablet 10 mg PO QAM metformin 500 mg tablet extended release 24 hr 500 mg PO QAM montelukast 10 mg tablet 10 mg PO QPM Trulicity 4.5 mg/0.5 mL pen injector subcut QWEEK omeprazole 20 mg capsule,delayed release(DR/EC) 20 mg PO atenolol 25 mg tablet 25 mg PO QAM Jardiance 25 mg tablet 25 mg PO QAM chlorthalidone 25 mg tablet 12.5 mg PO QAM rosuvastatin 10 mg tablet 10 mg PO QAM Print Language: Uzbek
[2023-11-02] MEDS: Acetaminophen 325 MG TABLET 975 MG PO (00:27)
[2023-11-02 00:28] VITALS: BP 188/88; PULSE 70; RESP 18; TEMP 36.8; O2SAT 99
== END 2023-11-02 00:29 | disposition home or self-care (01) ==
PROVIDERS: Emergency Provider Emergency Medicine Emergency Medical Services; PCP Registered Nurse
DX: R51.9 Headache, unspecified (principal); I10 Essential (primary) hypertension; Z11.52 Encounter for screening for COVID-19; Z20.828 Contact with and (suspected) exposure to other viral communicable diseases; E11.9 Type 2 diabetes mellitus without complications; Z79.84 Long term (current) use of oral hypoglycemic drugs; Z79.85 Long-term (current) use of injectable non-insulin antidiabetic drugs; Z79.02 Long term (current) use of antithrombotics/antiplatelets; Z79.899 Other long term (current) drug therapy
CPT/HCPCS: 0241U; 36415; 80053; 82947; 84484; 85025; 93005; 99283; 99285

== ENCOUNTER → 2023-11-01 21:01 | Outpatient (BNV) | payer MEDICAID, SELFPAY | PROVIDERS: Emergency Provider Emergency Medicine Emergency Medical Services; PCP Registered Nurse; Visit Provider Internal Medicine | DX: I10 Essential (primary) hypertension (principal) | CPT/HCPCS: 93010 ==

== ENCOUNTER → 2023-12-24 14:59 | Outpatient (BNVA) | payer MEDICAID, SELFPAY | PROVIDERS: PCP Registered Nurse; Visit Provider Surgery ==

== ENCOUNTER 2024-04-10 12:13 | Emergency (ER) | payer MEDICAID, SELFPAY ==
--- NOTE | ~2024-04-10 | XR_ITS ---
EXAMINATION: XR CHEST CLINICAL INFORMATION: Cough, chest pain. COMPARISON: Chest radiograph 08/18/2017. TECHNIQUE: 2 views of the chest were obtained. FINDINGS: Low lung volumes with diffuse bronchovascular crowding. No consolidation. No pleural effusion or pneumothorax. Unchanged appearance of the cardiomediastinal silhouette. No acute osseous findings. Visualized upper abdomen is within normal limits. XR/XR chest 2V IMPRESSION: Low lung volumes with bronchovascular crowding. No focal consolidation. No pleural effusion or pneumothorax. Electronically signed by: Dunia Alvarado MD 04/10/2024 01:42 PM EDT
[2024-04-10 12:16] VITALS: BP 146/82; PULSE 78; RESP 16; TEMP 36.1; O2SAT 98; BMI 33.1
--- NOTE | 2024-04-10 12:25 | ED.GENADULT ---
HPI - General Adult General Chief complaint: Chest Pain Stated complaint: cough-sore throat Time Seen by Provider: 04/10/24 13:09 Source: patient and [facility] Mode of arrival: ambulatory Limitations: language barrier History of Present Illness ED Provider: radha HPI narrative: Patient is a 58-year-old Serbian speaking female with history of diabetes mellitus, hypertension, asthma, depression presenting to the ED with complaint of cough, shortness of breath, body aches, malaise, and sore throat for the past 5 days. Chest pain with coughing, none at rest. Reports blood sugars have been labile. Denies fevers. Denies any abdominal pain, nausea, vomiting or diarrhea. MD complaint: cough Onset (ago): day(s) Related Data Home Medications ?Medication ?Instructions ?Recorded ?Confirmed albuterol sulfate 90 mcg/actuation 2 puff inhalation Q4-6H PRN 03/21/23 07/09/23 aerosol inhaler (ProAir HFA) amlodipine 10 mg tablet 10 mg PO QAM 03/21/23 07/09/23 atenolol 25 mg tablet 25 mg PO QAM 03/21/23 07/09/23 dulaglutide 4.5 mg/0.5 mL mg subcut QWEEK 03/21/23 07/09/23 subcutaneous pen injector (Trulicity) duloxetine 30 mg capsule,delayed 30 mg PO QAM 03/21/23 07/09/23 release empagliflozin 25 mg tablet 25 mg PO QAM 03/21/23 07/09/23 (Jardiance) gabapentin 100 mg capsule 100 mg PO BEDTIME 03/21/23 07/09/23 metformin 500 mg tablet,extended 500 mg PO QAM 03/21/23 07/09/23 release 24 hr montelukast 10 mg tablet 10 mg PO QPM 03/21/23 07/09/23 omeprazole 20 mg capsule,delayed 20 mg PO 03/21/23 07/09/23 release chlorthalidone 25 mg tablet 12.5 mg PO QAM 07/09/23 07/09/23 rosuvastatin 10 mg tablet 10 mg PO QAM 07/09/23 07/09/23 Previous Rx's ?Medication ?Instructions ?Recorded ibuprofen 600 mg tablet 600 mg PO Q8H PRN pain #14 tabs 03/29/21 diphenhydramine HCl 25 mg capsule 25 mg PO TID PRN allergic reaction 03/31/22 (Benadryl) 7 days #21 caps famotidine 20 mg tablet (Pepcid) 20 mg PO BID 7 days #14 tabs 03/31/22 prednisone 20 mg tablet 40 mg (2 x 20 mg) PO DAILY 5 days 03/31/22 #10 tabs benzonatate 100 mg capsule 100 mg PO TID PRN cough #20 caps 04/10/24 Allergies Allergy/AdvReac Type Severity Reaction Status Date / Time No Known Allergies Allergy Verified 04/10/24 12:25 Review of Systems Review of Systems: As per HPI Yes all other systems are reviewed and are negative Constitutional: Constitutional: Reports as per HPI [facility] Past Medical History Medical History Mass in neck Morbid obesity Diabetes Surgical History Hx of surgical procedure (~12/24/23) Social History Social History Alcohol intake: never Patient Tobacco Use Status: Never used Tobacco Advance Directives: No Advance Directives Information Provided: No Do you have a plan to hurt others: No Plan Physical Exam ED Vital Signs: Vital Signs - 24 hr 04/10/24 12:16 Temperature 97 F Pulse Rate 78 Respiratory Rate 16 Blood Pressure 146/82 H Pulse Oximetry 98 Oxygen Delivery Method Room Air BMI result Body Mass Index 33.1 Vital signs have been reviewed and appear to be correct. Blood pressure elevated. Heart rate normal. Respiratory rate normal. Temperature normal. Oxygen saturation normal. Const General: cooperative, healthy appearing and no acute distress Orientation/consciousness: oriented to person, oriented to place, oriented to time and patient oriented x3 Limitations: no limitations HENMT Head: Yes normocephalic and Yes atraumatic Ears: external ears normal General nose exam: Normal external nose present Face and sinus: Yes face symmetric Mouth: oropharynx normal and moist mucous membranes Throat: Yes uvula midline Eyes Pupils: Equal, round and reactive pupils present Neck Neck: Yes normal visual inspection and Yes supple Resp Effort & Inspection: normal respiratory effort and able to speak in complete sentences Auscultation: clear to auscultation bilaterally Cardio Rate: regular rate Rhythm: regular rhythm Heart sounds: S1 normal heart sound present and S2 normal heart sound present GI Palpation (GI): Soft to palpation and nontender Auscultation: normoactive bowel sounds General: Yes no CVA tenderness Back/Spine/Pelvis Back: no CVA tenderness Skin General skin exam: elasticity normal and turgor normal Neuro General: oriented to person, oriented to place, oriented to time, patient oriented x3, moves all extremities, no focal motor deficits and CN's II-XI intact bilaterally Cranial nerves: Yes Equal, round and reactive pupils present Cognition (Neuro): normal cognition Extrem General: Yes full ROM, Yes no pedal edema and Yes no calf tenderness Psych Mental Status: mental status grossly normal Affect: normal affect Thought process: Normal thought process present Course Course Course Narrative: This is an RME: Additional HPI, ROS, PE not included below will be deferred to primary provider. RME assessment and note performed by: Chloe Velazco PA-C This is a [id number]-female, with a history of diabetes mellitus, hypertension, asthma, depression who presents emergency department with complaints of cough, congestion, body aches. Plan: Labs, EKG, xray, viral swabs Medical Decision Making Medical Decision Making [facility] Narrative: Patient is a 58-year-old Serbian speaking female with history of diabetes mellitus, hypertension, asthma, depression presenting to the ED with complaint of cough, shortness of breath, body aches, malaise, and sore throat for the past 5 days. On exam patient is awake, A+Ox3, VS WNL, afebrile, normal neurological exam without focal deficits, physical exam findings as above. Given reported symptoms and physical exam findings, initial differential includes viral illness, covid, flu, bronchitis, pneumonia. Unlikely ACS. Labs notable for no leukocytosis, mildly elevated glucose without evidence of DKA, negative troponin. X-ray chest notable for no evidence of pneumonia. My interpretation is in agreement with the radiologist's interpretation. Viral serology positive for Covid. Patient updated on results and all questions answered. Return precautions discussed. Follow up with PCP. In-person product safety officer utilized. Differential Diagnosis Differential Diagnoses: The differential diagnosis associated with the presentation includes As per MDM Admission/Observation Consideration of admission/observation: Escalation of care including admission/observation considered Patient would have been admitted to the hospital had their work up had any findings where hospital admission was appropriate and their clinical presentation warranted hospital admission. Lab Data [facility] Lab Attestation statement: I reviewed the patient's lab results. As per [facility] 04/10/24 12:38 04/10/24 12:38 Labs: Lab Results 04/10/24 Range/Units 12:38 WBC 8.3 (4.8-10.8) X10*3/uL RBC 3.93 L (4.20-5.50) X10*6/uL Hgb 12.0 (12.0-16.0) g/dl Hct 35.5 L (37.0-47.0) % MCV 90.3 (80.0-98.0) fL MCH 30.5 (27.0-33.0) pg MCHC 33.8 (31.0-35.0) g/dl RDW 12.9 (11.0-16.0) % Plt Count 258 (160-400) X10*3/uL MPV 11.0 (9.4-12.3) fL Immature Gran % (Auto) 0.1 (0.0-0.4) % Neut % (Auto) 65.0 (45-73) % Lymph % (Auto) 27.6 (20-40) % Wolfe % (Auto) 6.4 (2-11) % Eos % (Auto) 0.7 (0-4) % Baso % (Auto) 0.2 (0-2) % Lymph # (Auto) 2.3 (1.2-4.9) X10*3/uL Wolfe # (Auto) 0.5 (0.1-1.2) X10*3/uL Eos # (Auto) 0.1 (0.0-0.4) X10*3/uL Baso # (Auto) 0.0 (0.0-0.2) X10*3/uL Abs Immat Gran (auto) 0.01 (0.00-0.03) X10*3/uL Absolute Neuts (auto) 5.4 (2.0-8.3) x10*3/uL Absolute Nucleated RBC 0.000 (0.0-0.012) X10*3/uL Nucleated RBC % (auto) 0.0 (0.0-0.2) /100WBC Sodium 141 (135-145) mmol/L Potassium 4.1 (3.3-5.1) mmol/L Chloride 108 (96-108) mmol/L Carbon Dioxide 24 (22-29) mmol/L Anion Gap 13 (12-20) BUN 14 (9-16) mg/dL Creatinine 0.80 (0.5-1.4) mg/dL Estim Creat Clear Calc 73.1 Estimated GFR > 60 Random Glucose 175 H (60-115) mg/dL Calcium 9.8 (8.4-10.2) mg/dL Total Bilirubin 0.3 (0.0-1.0) mg/dL AST 19 (5-31) U/L ALT 26 (0-31) U/L Alkaline Phosphatase 124 H (39-117) U/L Troponin I High Sens < 2.7 (<3.5-17.0) ng/L Total Protein 7.1 (6.5-8.0) g/dL Albumin 3.9 (3.5-5.0) g/dL Influenza Type A (PCR) NEGATIVE (Negative) Influenza Type B (PCR) NEGATIVE (Negative) RSV RNA Qual (PCR) NEGATIVE (Negative) SARS-CoV-2 RNA (RT-PCR) POSITIVE A (Negative) S. pyogenes GrpA MANSI Negative (Negative) Independent Interpretation I performed an independent interpretation of an: EKG (normal sinus rhythm, rate 76bpm, normal ND interval and QTc) and Plain X-Ray (no evidence of pneumonia on xray) Radiology Impression Discussion of test interpretation with radiology: I have reviewed the radiologist's reading. Radiologist Impression: RDER #: [id number] XR/XR chest 2V IMPRESSION: Low lung volumes with bronchovascular crowding. No focal consolidation. No pleural effusion or pneumothorax. External Record Review External record reviewed: Inpatient record, Office record and Outpatient record Prescription Management I considered prescription management with: Other Discharge Plan Discharge Clinical Impression: COVID-19 Patient Disposition: Home, Self-Care Instructions: COVID-19 (Coronavirus Disease 2019) (ED) Additional Instructions: You were evaluated in the emergency department today for sore throat, cough, body aches. Your COVID test was resulted as positive. You should continue to isolate at home for another 1 day. You should continue to wear mask for 5 days after that. You are outside the treatment window for antiviral medication. We recommend Tylenol 650mg or ibuprofen 600mg every 6 hours as needed for fever/discomfort. You are being prescribed benzonatate for cough which you can take every 8 hours as needed, keep this medication out of the reach of children. Return to the emergency department with worsening shortness of breath, chest pain, fever that does not improve with Tylenol or ibuprofen, persistent vomiting, or any other concerning symptoms. You should follow-up with your primary care provider. Prescriptions: New benzonatate 100 mg capsule 100 mg PO TID PRN (Reason: cough) Qty: 20 0RF No Action ibuprofen 600 mg tablet 600 mg PO Q8H PRN (Reason: pain) Qty: 14 0RF diphenhydramine HCl [Benadryl] 25 mg capsule 25 mg PO TID PRN (Reason: allergic reaction) 7 Days Qty: 21 0RF prednisone 20 mg tablet 40 mg PO DAILY 5 Days Qty: 10 0RF famotidine [Pepcid] 20 mg tablet 20 mg PO BID 7 Days Qty: 14 0RF albuterol sulfate [ProAir HFA] 90 mcg/actuation HFA aerosol inhaler 2 puff inhalation Q4-6H PRN duloxetine 30 mg capsule,delayed release(DR/EC) 30 mg PO QAM gabapentin 100 mg capsule 100 mg PO BEDTIME amlodipine 10 mg tablet 10 mg PO QAM metformin 500 mg tablet extended release 24 hr 500 mg PO QAM montelukast 10 mg tablet 10 mg PO QPM Trulicity 4.5 mg/0.5 mL pen injector subcut QWEEK omeprazole 20 mg capsule,delayed release(DR/EC) 20 mg PO atenolol 25 mg tablet 25 mg PO QAM Jardiance 25 mg tablet 25 mg PO QAM chlorthalidone 25 mg tablet 12.5 mg PO QAM rosuvastatin 10 mg tablet 10 mg PO QAM Print Language: Serbian
--- NOTE | 2024-04-10 12:26 | ECG_ITS ---
Test Reason : cp Blood Pressure : / mmHG Vent. Rate : 076 BPM Atrial Rate : 076 BPM P-R Int : 174 ms QRS Dur : 074 ms QT Int : 368 ms P-R-T Axes : 049 024 038 degrees QTc Int : 414 ms Normal sinus rhythm Normal ECG When compared with ECG of 01-NOV-2023 21:01, No significant change was found Referred By: Chloe Velazco Electronically Signed By:ADRIENNE RAZA
[2024-04-10 12:43] LABS: MANUAL DIFF FLAG NO
[2024-04-10 12:48] LABS: Basophils Percent Auto 0.2 % (0-2); Eosinophils Absolute Auto 0.1 X10*3/uL (0.0-0.4); Eosinophils Percent Auto 0.7 % (0-4); Hematocrit 35.5 % (37.0-47.0); Imm Gran Abs Auto 0.01 X10*3/uL (0.00-0.03); Imm Gran Pct Auto 0.1 % (0.0-0.4); Lymphocytes Absolute Auto 2.3 X10*3/uL (1.2-4.9); Lymphocytes Percent Auto 27.6 % (20-40); Mean Corpuscular HGB Conc 33.8 g/dl (31.0-35.0); Mean Corpuscular Hemoglobin 30.5 pg (27.0-33.0); Mean Corpuscular Volume 90.3 fL (80.0-98.0); Monocytes Absolute Auto 0.5 X10*3/uL (0.1-1.2); Monocytes Percent Auto 6.4 % (2-11); Neutrophils Absolute Auto 5.4 x10*3/uL (2.0-8.3); Platelet Count 258 X10*3/uL (160-400); Red Blood Count 3.93 X10*6/uL (4.20-5.50); Red Cell Distribution Width 12.9 % (11.0-16.0); White Blood Count 8.3 X10*3/uL (4.8-10.8)
[2024-04-10 12:50] LABS: IDNOW Serial# 08D9AD1C; Strep A Nucleic Acid Negative (Negative)
[2024-04-10 12:58] LABS: Alanine Aminotransferase 26 U/L (0-31); Albumin Level 3.9 g/dL (3.5-5.0); Alkaline Phosphatase 124 U/L (39-117); Anion Gap 13 (12-20); Aspartate Amino Transferase 19 U/L (5-31); Bilirubin Total 0.3 mg/dL (0.0-1.0); Blood Urea Nitrogen 14 mg/dL (9-16); Calcium 9.8 mg/dL (8.4-10.2); Carbon Dioxide 24 mmol/L (22-29); Chloride 108 mmol/L (96-108); Creatinine Clr Calc Pharmacy 73.1; Estimated Glomerular Filt Rate > 60; Glucose Random 175 mg/dL (60-115); Potassium 4.1 mmol/L (3.3-5.1); Sodium 141 mmol/L (135-145); Total Protein 7.1 g/dL (6.5-8.0)
[2024-04-10 13:06] LABS: Troponin-I High Sensitivity < 2.7 ng/L (<3.5-17.0)
[2024-04-10 13:42] LABS: Influenza A PCR NEGATIVE (Negative); Influenza B PCR NEGATIVE (Negative); Resp Syncy Virus RNA Qual PCR NEGATIVE (Negative); SARS COV2 PCR INHOUSE POSITIVE (Negative)
[2024-04-10 14:09] VITALS: BP 146/82; PULSE 78; RESP 16; TEMP 36.1; O2SAT 98
== END 2024-04-10 14:09 | disposition home or self-care (01) ==
PROVIDERS: Physician Assistant Medical; Emergency Provider Emergency Medicine Emergency Medical Services
DX: U07.1 COVID-19 (principal); R05.9 Cough, unspecified; R07.9 Chest pain, unspecified; E11.9 Type 2 diabetes mellitus without complications; I10 Essential (primary) hypertension; R06.02 Shortness of breath; R53.81 Other malaise; Z79.899 Other long term (current) drug therapy
CPT/HCPCS: 0241U; 71046; 80053; 84484; 85025; 87651; 93005; 99284

== ENCOUNTER 2024-08-04 09:16 | Outpatient (REF) | payer MEDICAID, SELFPAY ==
[2024-08-04 11:57] LABS: MANUAL DIFF FLAG NO
[2024-08-04 12:03] LABS: Basophils Percent Auto 0.5 % (0-2); Eosinophils Absolute Auto 0.1 X10*3/uL (0.0-0.4); Eosinophils Percent Auto 0.7 % (0-4); Hematocrit 39.3 % (37.0-47.0); Hemoglobin 13.1 g/dl (12.0-16.0); Imm Gran Abs Auto 0.01 X10*3/uL (0.00-0.03); Imm Gran Pct Auto 0.1 % (0.0-0.4); Lymphocytes Absolute Auto 2.6 X10*3/uL (1.2-4.9); Lymphocytes Percent Auto 30.3 % (20-40); Mean Corpuscular HGB Conc 33.3 g/dl (31.0-35.0); Mean Corpuscular Hemoglobin 30.1 pg (27.0-33.0); Mean Corpuscular Volume 90.3 fL (80.0-98.0); Monocytes Absolute Auto 0.4 X10*3/uL (0.1-1.2); Monocytes Percent Auto 5.1 % (2-11); Neutrophils Absolute Auto 5.3 x10*3/uL (2.0-8.3); Neutrophils Percent Auto 63.3 % (45-73); Platelet Count 272 X10*3/uL (160-400); Red Blood Count 4.35 X10*6/uL (4.20-5.50); Red Cell Distribution Width 12.6 % (11.0-16.0); White Blood Count 8.4 X10*3/uL (4.8-10.8)
[2024-08-04 12:24] LABS: Alanine Aminotransferase 28 U/L (0-31); Albumin Level 4.1 g/dL (3.5-5.0); Alkaline Phosphatase 131 U/L (39-117); Anion Gap 8 (12-20); Aspartate Amino Transferase 22 U/L (5-31); Bilirubin Total 0.2 mg/dL (0.0-1.0); Blood Urea Nitrogen 12 mg/dL (9-16); Calcium 10.1 mg/dL (8.4-10.2); Carbon Dioxide 28 mmol/L (22-29); Chloride 106 mmol/L (96-108); Cholesterol 247 mg/dL (<200); Estimated Glomerular Filt Rate > 60; Glucose Random 168 mg/dL (60-115); HDL Cholesterol 53 mg/dL (>40); LDL Cholesterol Calculated 164 mg/dL (<100); Potassium 4.2 mmol/L (3.3-5.1); Sodium 138 mmol/L (135-145); Total Protein 7.5 g/dL (6.5-8.0); Triglycerides 154 mg/dL (<150)
[2024-08-04 12:39] LABS: Creatinine Urine 174.18 mg/dL; Microalbum/Creatinine Ratio Ur 21.8 ug/mg cr (<30); TSH reflex Free T4 1.93 uIU/mL (0.32-4.0)
[2024-08-04 12:47] LABS: Vitamin B12 589 pg/mL (200-900)
== END 2024-08-04 09:17 | disposition home or self-care (01) ==
LOC: HO.HHCL 09:16
PROVIDERS: Visit Provider Registered Nurse
DX: E11.65 Type 2 diabetes mellitus with hyperglycemia (principal); Z79.4 Long term (current) use of insulin
CPT/HCPCS: 36415; 80053; 80061; 82043; 82570; 82607; 84443; 85025

== ENCOUNTER 2024-12-14 09:30 | Outpatient (REF) | payer MEDICAID, SELFPAY ==
--- NOTE | ~2024-12-14 | XR_ITS ---
EXAMINATION: XR CERVICAL SPINE 2-3 VIEWS HISTORY: PAIN COMPARISON: Comparison is made with the prior examination dated 07/03/2021. FINDINGS: AP, lateral, and open-mouth odontoid views of the cervical spine are submitted. Osseous mineralization is normal. Seven cervical vertebral bodies are identified maintaining normal height and alignment without evidence of fracture or subluxation. There is mild to moderate degenerative disc disease with disc space narrowing and osteophyte formation. The odontoid and lateral masses of C1 are intact. There is no prevertebral soft tissue swelling. XR/XR cervical spine 3V IMPRESSION: Mild to moderate degenerative disc disease. No evidence of fracture or subluxation. Electronically signed by: Gage Ferrara MD 12/14/2024 09:49 AM EDT
== END 2024-12-14 09:31 | disposition home or self-care (01) ==
LOC: HO.HHCX 09:30
PROVIDERS: Visit Provider Emergency Medicine
DX: M54.2 Cervicalgia (principal); S19.9XXD Unspecified injury of neck, subsequent encounter
CPT/HCPCS: 72040

== ENCOUNTER → 2024-12-14 09:31 | Outpatient (BNV) | payer MEDICAID, SELFPAY | PROVIDERS: Visit Provider Radiology Diagnostic Radiology | DX: M50.30 Other cervical disc degeneration, unspecified cervical region (principal) | CPT/HCPCS: 72040 ==

== ENCOUNTER 2025-02-24 12:18 | Outpatient (REF) | payer MEDICAID, SELFPAY ==
--- OUTSIDE RECORDS SUMMARY | 2025-02-24 13:11 | XMS_ITS | Clinical Summary ---
Author Organization [facility] Address [address] [place] [address] Care Team Providers Care Small Business Banking Officer Name Role Phone Unavailable Primary Care Provider Unavailabl e Source Comments PLEASE NOTE, if this patient is a minor, it may be UNLAWFUL to discuss sensitive information that is contained in these records (such as FAMILY PLANNING, MENTAL HEALTH or SUBSTANCE ABUSE) with the minor patient's parent or other person without the patient's specific authorization.[facility] Social History Tobacco Use Types Packs/Day Years Used Date Smoking Tobacco: Never Assessed Comments Unknown Sex and Gender Information Value Date Recorded Sex Assigned at Female 01/12/2025 7:57 AM PDT Legal Sex Female 7:57 AM PDT Gender Identity Female 01/12/2025 7:57 AM PDT Sexual Orientation Not on file Plan of Treatment Upcoming Encounters Date Type Department Care Team (Late st Contact Info) Description 03/24/2025 3:00 PM EDT Behavioral Health Visit [facility] [address] [place] [address] Dixie Ramirez APRN [address] [place] [address] Health Maintenance Due Date Last Done Comments Anxiety Screening 1965 HPV Screening 1965 Hepatitis C Screening 1965 Pap + HPV 1965 Tobacco Screening 1965 HIV Screening 1980 Hypertension Screening (#1) 1983 Cervical Cancer Screening [address] Colonography 2010 Colonoscopy 2010 Colorectal Cancer Screening 2010 FIT/gFOBT 2010 Fecal DNA 2010 Flexible Sigmoidoscopy 2010 Breast Cancer Screening (Mammogram) 02/19/2023 02/19/2021 Alcohol and Drug Screen 07/14/2024 Depression Annual Screen 07/14/2024 Imm-Hepatitis B (2 of 2 - Cp G 2-dose series) 09/02/2024 08/05/2024 Imm-Influenza (#1) 2025 08/05/2024, 1 08/14/2022, 05/14/2022, Additional history exists Diabetes Screening 11/16/2027 11/15/2024, 11/15/2024 Lipid Screening 08/04/2029 08/04/2024 Imm-DTaP/Tdap/Td (3 - Td or Tdap) 08/05/2034 025, 06/30/2013 Imm-Zoster, Recombinant Completed 02/27/2022, 11/07 Imm-Pneumococcal 50+ Completed 01/08/2023, 07/05/20 21 [id number] Completed 08/05/2024, 1210/2022, 04/17/2022, Additional history exists Cervical Ablation/Cold-Knife Conization Discontinued Cervical Cryotherapy Discontinued Colposcopy Discontinued Endometrial Biopsy Discontinued Excision/Leep Discontinued HPV Genotyping Discontinued Vaginal Pap Discontinued Vulvoscopy Discontinued Insurance [facility]
[2025-02-24 17:00] LABS: Alanine Aminotransferase 25 U/L (0-31); Albumin Level 4.0 g/dL (3.5-5.0); Alkaline Phosphatase 125 U/L (39-117); Anion Gap 12 (12-20); Aspartate Amino Transferase 33 U/L (5-31); Blood Urea Nitrogen 14 mg/dL (9-16); Calcium 9.4 mg/dL (8.4-10.2); Carbon Dioxide 27 mmol/L (22-29); Chloride 105 mmol/L (96-108); Cholesterol 236 mg/dL (<200); Estimated Glomerular Filt Rate > 60; HDL Cholesterol 49 mg/dL (>40); Potassium 4.1 mmol/L (3.3-5.1); Sodium 140 mmol/L (135-145); Total Protein 6.7 g/dL (6.5-8.0); Triglycerides 198 mg/dL (<150)
[2025-02-24 17:05] LABS: Gamma Glutamyl Transpeptidase 151 U/L (7-33)
[2025-02-27 19:13] LABS: TS Negative Control Passed; TS Panel A 0; TS Panel B 2; TS Positive Control Passed; TSpotTB Negative (Negative)
== END 2025-02-24 12:19 | disposition home or self-care (01) ==
LOC: HO.HHCL 12:18
PROVIDERS: Internal Medicine; PCP Registered Nurse; Visit Provider Registered Nurse
DX: Z11.1 Encounter for screening for respiratory tuberculosis (principal); E11.65 Type 2 diabetes mellitus with hyperglycemia; Z79.4 Long term (current) use of insulin
CPT/HCPCS: 36415; 80053; 80061; 82248; 82977; 86481